=== PATIENT | female | born 1985 | race African-American/Black ===

== ENCOUNTER 2018-07-10 12:38 | Emergency (ER) | payer OTHER ==
[~2018-07-10] VITALS: Ht 167.6 cm; Wt 71.0 kg
[~2018-07-10 12:38] MED LIST: DILANTIN
[2018-07-10] MEDS ORDERED: ONDANSETRON 4MG ODT PO STA (13:31)
[2018-07-10] MEDS ORDERED: KETOROLAC 30MG/ML VIAL IV STA (13:31)
[2018-07-10] MEDS ORDERED: SODIUM CHLORIDE 0.9% 1,000 ML IV ONE (13:31)
[2018-07-10 14:26] LABS: BASOPHILS % 1.1 % (0.0-2.0); HEMATOCRIT. 37.4 % (36.0-48.0); HEMOGLOBIN. 12.6 g/dL (12.0-16.0); LYMPHOCYTES % 28.8 % (20.0-50.0); MEAN CORPUSCULAR HEMOGLOBIN 30.4 pg (28.0-32.0); MEAN CORPUSCULAR VOLUME 90.4 fL (81.0-99.0); MEAN PLATELET VOLUME 10.6 fl (7.4-10.4); NEUTROPHILS % 62.1 % (40.0-76.0); PLATELET 207 x1000/uL (130-400); RED BLOOD CELL COUNT 4.14 mill/uL (4.2-5.4); RED CELL DISTRIBUTION WIDTH 15.1 % (11.6-14.6)
[2018-07-10 14:36] LABS: HCG SCREEN NEGATIVE
[2018-07-10 14:39] LABS: CHLORIDE 109 mEq/L (98-107)
[2018-07-10 15:09] LABS: CLARITY URINE CLEAR (CLEAR); COLOR URINE YELLOW (YELLOW); KETONES URINE TRACE (NEGATIVE); LEUKOCYTE ESTERASE URINE NEGATIVE (NEGATIVE); NITRITE URINE NEGATIVE (NEGATIVE); OCCULT BLOOD URINE NEGATIVE (NEGATIVE); PH URINE 5.5 (4.5-8.0); PROTEIN URINE NEGATIVE (NEGATIVE)
[2018-07-10 15:10] VITALS: BP 107/61
== END 2018-07-10 16:09 | disposition home or self-care (01) ==
LOC: ER 13:54
DX: R51 Headache (principal); G93.2 Benign intracranial hypertension; G40.909 Epilepsy, unspecified, not intractable, without status epilepticus; F12.10 Cannabis abuse, uncomplicated; F17.200 Nicotine dependence, unspecified, uncomplicated; Z90.49 Acquired absence of other specified parts of digestive tract; Z88.0 Allergy status to penicillin; Z98.890 Other specified postprocedural states
CPT/HCPCS: 36415; 80053; 81003; 84703; 85025; 87077; 87086; 96374; 99285; J1885; J7030; Q0162

== ENCOUNTER 2019-08-22 00:27 | Emergency (ER) | payer MEDICAID, OTHER ==
[~2019-08-22] VITALS: Ht 167.6 cm; Wt 91.0 kg
[2019-08-22] MEDS ORDERED: DIPHENHYDRAMINE 50MG/ML VIAL IM STA (00:55)
[2019-08-22] MEDS ORDERED: LORAZEPAM 2MG/ML CPJ IM ONE ×2 (01:00→01:30)
[2019-08-22 02:39] LABS: HEMOGLOBIN. 12.3 g/dL (12.0-16.0); LYMPHOCYTES % 38.9 % (20.0-50.0); MEAN CORPUSCULAR HEMOGLOBIN 29.8 pg (28.0-32.0); MEAN PLATELET VOLUME 10.5 fl (7.4-10.4); NEUTROPHILS % 51.1 % (40.0-76.0); PLATELET 220 x1000/uL (130-400); RED BLOOD CELL COUNT 4.11 mill/uL (4.2-5.4); RED CELL DISTRIBUTION WIDTH 14.9 % (11.6-14.6)
[2019-08-22 02:51] LABS: CLARITY URINE CLEAR (CLEAR); COLOR URINE YELLOW (YELLOW); KETONES URINE NEGATIVE (NEGATIVE); LEUKOCYTE ESTERASE URINE NEGATIVE (NEGATIVE); NITRITE URINE NEGATIVE (NEGATIVE); OCCULT BLOOD URINE NEGATIVE (NEGATIVE); PH URINE 5.5 (4.5-8.0); PROTEIN URINE NEGATIVE (NEGATIVE); SPECIFIC GRAVITY URINE 1.009 (1.005-1.030); UROBILINOGEN URINE 0.2 E.U./dL (0.2-1.0)
[2019-08-22 02:53] LABS: HCG SCREEN NEGATIVE
[2019-08-22 03:21] LABS: CHLORIDE 113 mEq/L (98-107)
[2019-08-22 03:25] LABS: ETHANOL BLOOD 261 mg/dL
[2019-08-22 03:33] LABS: *BARBITURATES SCREEN URINE NEGATIVE (NEGATIVE); *BENZODIAZEPINES SCREEN URINE NEGATIVE (NEGATIVE); METHADONE URINE SCREEN NEGATIVE (NEGATIVE)
[2019-08-22 03:34] LABS: *AMPHETAMINES SCREEN URINE NEGATIVE (NEGATIVE); CANNABINOID URINE SCREEN NEGATIVE (NEGATIVE); OPIATES URINE SCREEN NEGATIVE (NEGATIVE); PHENCYCLIDINE URINE SCREEN NEGATIVE (NEGATIVE)
[2019-08-22 03:41] LABS: *COCAINE SCREEN URINE PRESUMTIVE POSITIVE (NEGATIVE)
[2019-08-22] MEDS ORDERED: BACITRACIN 15GM TUBE TOP ONE (05:00)
[2019-08-22] MEDS ORDERED: TETANUS, DIPHTHERIA, PERTUSSIS VAC/PF 0.5ML (>7YR OLD) IM ONE (05:00)
[2019-08-22] MEDS ORDERED: OLANZAPINE 10 MG/VIAL IM ONE (16:30)
[2019-08-23 15:34] VITALS: BP 122/58
== END 2019-08-23 22:14 ==
LOC: ER 00:57
DX: R44.3 Hallucinations, unspecified (principal); F14.10 Cocaine abuse, uncomplicated; F10.129 Alcohol abuse with intoxication, unspecified; Y90.8 Blood alcohol level of 240 mg/100 ml or more; S61.512A Laceration without foreign body of left wrist, initial encounter; X78.8XXA Intentional self-harm by other sharp object, initial encounter; Y93.89 Activity, other specified; Y92.480 Sidewalk as the place of occurrence of the external cause; Z78.1 Physical restraint status; Z23 Encounter for immunization
CPT/HCPCS: 36415; 80053; 80305; 80320; 80329; 81003; 84703; 85025; 90471; 90715; 96372; 99285; J1200; J2060; Z7610; G0480

== ENCOUNTER 2025-05-04 18:59 | Emergency (ER) | payer MEDICAID, OTHER ==
[~2025-05-04] VITALS: Ht 165.1 cm; Wt 104.0 kg
[2025-05-04 19:11] VITALS: O2SAT 98
[2025-05-04 19:33] VITALS: BP 130/100; PULSE 76; RESP 16; TEMP 36.8; O2SAT 100
[2025-05-04 19:36] LABS: BASOPHILS % 0.6 % (0.0-2.0); EOSINOPHILS % 1.3 % (0.0-5.0); HEMATOCRIT. 41.0 % (36.0-48.0); HEMOGLOBIN. 13.2 g/dL (12.0-16.0); LYMPHOCYTES % 24.2 % (20.0-50.0); MEAN PLATELET VOLUME 9.1 fl (7.4-10.4); MONOCYTES % 5.1 % (2.0-8.0); NEUTROPHILS % 68.8 % (40.0-76.0); PLATELET 257 x1000/uL (130-400); RED BLOOD CELL COUNT 4.84 mill/uL (4.2-5.4); RED CELL DISTRIBUTION WIDTH 16.8 % (11.6-14.6)
[2025-05-04 19:48] LABS: CREATININE 1.0 mg/dL (0.6-1.0)
[2025-05-04 19:49] LABS: UREA NITROGEN BLOOD 16 mg/dL (9-23)
[2025-05-04 19:50] LABS: ASPARTATE AMINOTRANSFERASE 18 IU/L (<34)
[2025-05-04 19:51] LABS: BILIRUBIN DIRECT < 0.1 mg/dL (<=3.0); BILIRUBIN TOTAL 0.2 mg/dL (0.1-1.0); HCG SCREEN NEGATIVE; PROTEIN TOTAL 7.8 g/dL (6.0-8.3)
[2025-05-04 20:31] LABS: CLARITY URINE CLEAR (CLEAR); COLOR URINE YELLOW (YELLOW); GLUCOSE URINE 3+ (NEGATIVE); KETONES URINE 1+ (NEGATIVE); LEUKOCYTE ESTERASE URINE NEGATIVE (NEGATIVE); NITRITE URINE NEGATIVE (NEGATIVE); OCCULT BLOOD URINE NEGATIVE (NEGATIVE); PH URINE 6.0 (4.5-8.0); PROTEIN URINE NEGATIVE (NEGATIVE); SPECIFIC GRAVITY URINE 1.052 (1.005-1.030); UROBILINOGEN URINE 0.2 E.U./dL (0.2-1.0)
[2025-05-04 21:11] LABS: BACTERIA URINE 1+; RBC URINE NONE SEEN /hpf (0-2); SQUAMOUS EPITHELIAL CELL URINE 1+ /lpf (RARE/1+)
== END 2025-05-04 21:00 | disposition left against medical advice (07) ==
LOC: ER 18:59
DX: R11.0 Nausea (principal); F12.10 Cannabis abuse, uncomplicated; R10.2 Pelvic and perineal pain; Z88.0 Allergy status to penicillin; Z90.49 Acquired absence of other specified parts of digestive tract; Z98.890 Other specified postprocedural states
CPT/HCPCS: 36415; 80048; 80076; 81003; 81025; 84702; 84703; 85025; 99283